=== PATIENT | male | born 1955 | race Caucasian/White ===

== ENCOUNTER → 2022-01-02 | Outpatient (CLI) | payer MEDICARE, OTHER | LOC: WCC 07:14 | DX: L89.894 Pressure ulcer of other site, stage 4 (principal); S91.302A Unspecified open wound, left foot, initial encounter; I11.9 Hypertensive heart disease without heart failure; I25.10 Atherosclerotic heart disease of native coronary artery without angina pectoris; M54.50 Low back pain, unspecified; R73.01 Impaired fasting glucose; G90.09 Other idiopathic peripheral autonomic neuropathy; Z87.891 Personal history of nicotine dependence; Z88.7 Allergy status to serum and vaccine ==

== ENCOUNTER → 2022-01-10 | Outpatient (CLI) | payer MEDICARE, OTHER | END | disposition home or self-care (01) | LOC: WCC 07:34 | DX: L89.894 Pressure ulcer of other site, stage 4 (principal); I10 Essential (primary) hypertension; I25.10 Atherosclerotic heart disease of native coronary artery without angina pectoris; M54.50 Low back pain, unspecified; G90.09 Other idiopathic peripheral autonomic neuropathy; R73.01 Impaired fasting glucose; Z79.899 Other long term (current) drug therapy | CPT/HCPCS: 73630 ==

== ENCOUNTER → 2022-01-10 | Outpatient (CLI) | payer MEDICARE, OTHER | LOC: RAD 09:28 | DX: S91.302A Unspecified open wound, left foot, initial encounter (principal) | CPT/HCPCS: 73630 ==

== ENCOUNTER → 2022-01-15 | Outpatient (CLI) | payer MEDICARE, OTHER | LOC: WCC 07:21 | DX: L89.894 Pressure ulcer of other site, stage 4 (principal); I25.10 Atherosclerotic heart disease of native coronary artery without angina pectoris; I11.9 Hypertensive heart disease without heart failure; M54.50 Low back pain, unspecified; E11.9 Type 2 diabetes mellitus without complications; G90.09 Other idiopathic peripheral autonomic neuropathy; Z79.899 Other long term (current) drug therapy; Z79.2 Long term (current) use of antibiotics; Z79.01 Long term (current) use of anticoagulants ==

== ENCOUNTER 2022-03-23 10:52 | Emergency (ER) | payer MEDICARE, OTHER ==
[2022-03-23 11:49] LABS: HEMOGLOBIN 13.8 gm/dl (14.0-17.5); RED BLOOD COUNT 4.77 M/UL (4.20-5.50); WHITE BLOOD COUNT 5.9 K/UL (4.5-11.0)
[2022-03-23 12:08] LABS: BUN/CREATININE RATIO 19 (0-10)
[2022-03-23] MEDS ORDERED: METRONIDAZOLE500 MG PO (14:01)
[2022-03-23] MEDS ORDERED: FLOMAX 0.4 MG0.4 MG PO (14:01)
[2022-03-23] MEDS ORDERED: CIPRO500 MG PO (14:01)
== END 2022-03-23 14:28 | disposition home or self-care (01) ==
LOC: ER1 10:52
PROVIDERS: Physician Assistant Medical
DX: K57.32 Diverticulitis of large intestine without perforation or abscess without bleeding (principal); I11.9 Hypertensive heart disease without heart failure; E78.5 Hyperlipidemia, unspecified; Z90.49 Acquired absence of other specified parts of digestive tract
CPT/HCPCS: 80053; 81001; 83605; 85025; 99284; Q9967